=== PATIENT | female | born 1975 | race Caucasian/White ===

== ENCOUNTER 2024-03-28 09:39 | Outpatient (CLI) | payer BC, SELFPAY ==
[2024-03-28 11:54] LABS: Basophils Absolute Auto 0.1 K/mm3 (0.0-0.1); Basophils Percent Auto 1.4 % (0.2-1.2); Eosinophils Absolute Auto 0.1 K/mm3 (0-0.3); Eosinophils Percent Auto 2.7 % (0-4.4); Hematocrit 43.3 % (37.0-47.0); Hemoglobin 14.1 g/dL (12.0-15.0); Immature Granulocyte Absolute 0.02 K/mm3 (0.00-0.031); Immature Granulocyte Percent A 0.4 % (0-0.5); Lymphocytes Absolute Auto 1.55 K/mm3 (0.9-3.2); Mean Corpuscular HGB Conc 32.6 g/dl (32-36); Mean Corpuscular Hemoglobin 28.6 pg (26-34); Mean Corpuscular Volume 87.8 fl (80-100); Mean Platelet Volume 10.4 fl (7.4-10.4); Monocytes Absolute Auto 0.5 K/mm3 (0.1-0.6); Monocytes Percent Auto 8.9 % (2.6-8.5); Neutrophils Absolute Auto 2.9 K/mm3 (1.3-6.7); Neutrophils Percent Auto 56.6 % (45.5-73.1); Platelet Count Result 246 k/mm3 (150-375); Red Blood Count 4.93 M/mm3 (4.2-5.4); Red Cell Distribution Width 13.2 % (11.5-14.5); White Blood Count 5.2 K/mm3 (4.5-10.0)
[2024-03-28 12:27] LABS: Alanine Aminotransferase 11 U/L (6-35); Albumin Level 4.1 g/dL (3.5-5.1); Alkaline Phosphatase 65 U/L (38-126); Anion Gap -1 mmol/L (4-12); Aspartate Amino Transferase 35 U/L (14-36); Bilirubin,Total 0.5 mg/dL (0.2-1.3); Blood Urea Nitrogen 13 mg/dL (7-17); Calcium 9.1 mg/dL (8.4-10.2); Carbon Dioxide 31 mmol/L (22-30); Chloride 107 mmol/L (98-107); Cholesterol 180 mg/dL (0-200); Estimated Glomerular Filt Rate > 60; Glucose 83 mg/dL (65-110); HDL Direct 63 mg/dL; Potassium 4.8 mmol/L (3.4-5.0); Sodium 137 mmol/L (137-145); Triglycerides 75 mg/dL (<150)
[2024-03-28 12:30] LABS: Vitamin D 25 Hydroxy 59.5 ng/mL
[2024-03-28 12:38] LABS: LDL Cholesterol Direct 80 mg/dL
[2024-03-28 13:56] LABS: Hemoglobin A1C 5.4 % (<5.7)
== END 2024-03-28 09:40 | disposition home or self-care (01) ==
LOC: ANHGOSHLAB 09:40
PROVIDERS: PCP Family Medicine; Visit Provider Family Medicine
DX: Z00.00 Encounter for general adult medical examination without abnormal findings (principal); E53.8 Deficiency of other specified B group vitamins; E78.5 Hyperlipidemia, unspecified; I10 Essential (primary) hypertension; E55.9 Vitamin D deficiency, unspecified; R73.9 Hyperglycemia, unspecified
CPT/HCPCS: 36415; 80053; 80061; 82306; 82607; 83036; 84443; 85025

== ENCOUNTER 2024-10-10 00:31 | Day surgery (SDC) | payer BC, SELFPAY ==
[2024-09-22 10:15] VITALS: BMI 27.4
--- OUTSIDE RECORDS SUMMARY | 2024-10-10 00:34 | XMS_ITS | Data Portability ---
Author Organization JONATHAN Ballesteros SIKevin Pelaez Address [address] [place] [address] Assessment No assessment recorded. Plan of Treatment Reminders Order Date Submit Date Provider Last Modified By Organization Details Last Modified Time Details Appointments None recorded. Lab FSH (follicle -stimulat ing hormone), serum 2016 017 [facility], [address] [place] [address], [address], [place], [address], 7 07:12:32 estradiol , serum 2016 017 [facility], [address] [place] [address], [address], [place], [address], 7 07:12:33 CBC w/ auto diff 2016 017 [facility], [address] [place] [address], [address], [place], [address], 7 07:12:30 CMP, serum or plasma 2016 017 [facility], [address] [facility], [address], [place], [address], 7 07:12:31 TSH, ultra-sen sitive, serum 2016 017 [facility], [address] [place] [address], [address], [place], [address], 7 07:12:32 HbA1c (hemoglob in A1c), blood 2016 017 [facility], [address] [facility], [address], [place], [address], 7 07:12:32 lipid panel, serum 2016 [facility], [address] [facility], [address], [place], [address], 7 07:12:31 Referral None recorded. Procedures None recorded. Surgeries None recorded. Imaging MAMMO, screening , bilateral 2016 [facility] ([facility]), [address] [place] [address], [address], 15:02:01 Medication Orders multivita min tablet 2016 INTERFACE [facility], [address] [place] [address], [address], 7 12:07:43 calcium 600 mg (as carbonate )-vitamin D3 20 mcg (800 unit) tablet 2016 017 INTERFACE [facility], [address] [place] [address], [address], 7 12:07:41 estradiol 1 mg tablet 2016 017 ATHENAFAX [facility], [address] [place] [address], [address], 7 15:25:41 Contrave 8 mg-90 mg tablet,ex tended release 2016 017 ATHENAFAX Not available 13:38:21 Patient TargetsNo targets recorded. Patient Instructions Encounter Date Encounter Id Patient Instructions Last Modified By Organization Details Last Modified Time 06/22/2016 [id number] When You Want to Lose Weight: Care Instructions [facility] Not available 06/22/2016 12:07:47 mammogram: about this test mwasserman Not available 06/22/2016 15:02:01 Reason for Referral None Reported. Results Created Date Observation Date Name Description Value Unit Range Abnormal Flag Note LastModifiedBy Organization Detail LastModifiedTime 06/23/19 17 06/23/2016 CBC w/ auto diff WBC 8.1 x10e3 /uL 3.4-10 .8 Not Available [facility] ([facility]) [address] [facility] [address], [place], [address], 06/23/2016 07:12:30 06/23/19 17 06/23/2016 CBC w/ auto diff RBC 4.77 x10e6 /uL 3.77-5 .28 Not Available [facility] ([facility]) [address] [facility] [address] [place], [place], [address], 06/23/2016 07:12:30 06/23/19 17 06/23/2016 CBC w/ auto diff hemoglobin 13.5 g/dL 11.1-1 5.9 Not Available [facility] ([facility]) [address] [facility] [place], [address], 06/23/2016 07:12:30 06/23/19 17 06/23/2016 CBC w/ auto diff hematocrit 39.7 % 34.0-4 6.6 Not Available [facility] ([facility]) [address] [facility] [place], [address], 06/23/2016 07:12:30 06/23/19 17 06/23/2016 CBC w/ auto diff MCV 83 fL 79-97 Not Available [facility] ([facility]) [address] [facility] [place], [address], 06/23/2016 07:12:30 06/23/19 17 06/23/2016 CBC w/ auto diff MCH 28.3 pg 26.6-3 3.0 Not Available [facility] ([facility]) [address] [place], [address], 06/23/2016 07:12:30 06/23/19 17 06/23/2016 CBC w/ auto diff MCHC 34.0 g/dL 31.5-3 5.7 Not Available [facility] ([facility]) [address] [facility] [address], [place], [address], 06/23/2016 07:12:30 06/23/19 17 06/23/2016 CBC w/ auto diff RDW 13.9 % 12.3-1 5.4 Not Available [facility] ([facility]) [address] [facility] [address] [place], [place], [address], 06/23/2016 07:12:30 06/23/19 17 06/23/2016 CBC w/ auto diff platelets 272 x10e3 /uL 150-37 9 Not Available [facility] ([facility]) [address] [facility] [address] [place], [place], [address], 06/23/2016 07:12:30 06/23/19 17 06/23/2016 CBC w/ auto diff neutrophils 64 % Not Available [facility] ([facility]) [address] [facility] [address] [place], [place], [address], 06/23/2016 07:12:30 06/23/19 17 06/23/2016 CBC w/ auto diff lymphs 27 % Not Available [facility] ([facility]) [address] [facility] [address] [place], [place], [address], 06/23/2016 07:12:30 06/23/19 17 06/23/2016 CBC w/ auto diff monocytes 8 % Not Available [facility] ([facility]) [address] [facility] [address] [place], [place], [address], 06/23/2016 07:12:30 06/23/19 17 06/23/2016 CBC w/ auto diff eos 1 % Not Available [facility] ([facility]) [address] [facility] [address] [place], [place], [address], 06/23/2016 07:12:30 06/23/19 17 06/23/2016 CBC w/ auto diff basos 0 % Not Available [facility] ([facility]) [address] [facility] [address] [place], [place], [address], 06/23/2016 07:12:30 06/23/19 17 06/23/2016 CBC w/ auto diff immature cells NIGHT ORDER SELECTOR Not Available [facility] ([facility]) [address] [facility] [address] [place], [place], [address], 06/23/2016 07:12:30 06/23/19 17 06/23/2016 CBC w/ auto diff neutrophils (absolute) 5.2 x10e3 /uL 1.4-7. 0 Not Available [facility] ([facility]) [address] [facility] [place], [place], [address], 06/23/2016 07:12:30 06/23/19 17 06/23/2016 CBC w/ auto diff lymphs (absolute) 2.2 x10e3 /uL 0.7-3. 1 Not Available [facility] ([facility]) [address] [facility] [address] [place], [place], [address], 06/23/2016 07:12:30 06/23/19 17 06/23/2016 CBC w/ auto diff monocytes(ab solute) 0.6 x10e3 /uL 0.1-0. 9 Not Available [facility] ([facility]) [address] [place], [address], 06/23/2016 07:12:30 06/23/19 17 06/23/2016 CBC w/ auto diff eos (absolute) 0.1 x10e3 /uL 0.0-0. 4 Not Available [facility] ([facility]) [address] [place], [address], 06/23/2016 07:12:30 06/23/19 17 06/23/2016 CBC w/ auto diff baso (absolute) 0.0 x10e3 /uL 0.0-0. 2 Not Available [facility] ([facility]) [address] [place], [address], 06/23/2016 07:12:30 06/23/19 17 06/23/2016 CBC w/ auto diff immature granulocytes 0 % Not Available [facility] ([facility]) [address] [place], [address], 06/23/2016 07:12:30 06/23/19 17 06/23/2016 CBC w/ auto diff immature grans (abs) 0.0 x10e3 /uL 0.0-0. 1 Not Available [facility] ([facility]) [address] [facility] [address] [place], [place], [address], 06/23/2016 07:12:30 06/23/1906/23/2016 CBC w/ auto diff NRBC NIGHT ORDER SELECTOR Not Available [facility] ([facility]) [address] [place], [address], 06/23/2016 07:12:30 06/23/19 17 06/23/2016 CBC w/ auto diff hematology comments: NIGHT ORDER SELECTOR Not Available [facility] ([facility]) [address] [facility] [address] [place], [place], [address], 06/23/2016 07:12:30 06/23/19 17 06/23/2016 CMP, serum or plasm a glucose, serum 93 mg/dL 65-99 Not Available [facility] ([facility]) [address] [place], [address], 06/23/2016 07:12:31 06/23/1906/23/2016 CMP, serum or plasm a BUN 12 mg/dL 6-24 Not Available [facility] ([facility]) [address] [place], [address], 06/23/2016 07:12:31 06/23/1906/23/2016 CMP, serum or plasm a creatinine, serum 0.61 mg/dL 0.57-1 .00 Not Available [facility] ([facility]) [address] [place], [address], 06/23/2016 07:12:31 06/23/19 17 06/23/2016 CMP, serum or plasm a eGFR if nonafricn AM 114 mL/mi n/1.7 3 >59 Not Available [facility] ([facility]) [address] [place], [address], 06/23/2016 07:12:31 06/23/19 17 06/23/2016 CMP, serum or plasm a eGFR if africn AM 131 mL/mi n/1.7 3 >59 Not Available [facility] ([facility]) [address] [place], [address], 06/23/2016 07:12:31 06/23/19 17 06/23/2016 CMP, serum or plasm a BUN/creatini ne ratio 20 9-23 Not Available [facility] ([facility]) [address] [place], [address], 06/23/2016 07:12:31 06/23/19 17 06/23/2016 CMP, serum or plasm a sodium, serum 139 mmol/ L 134-14 4 Not Available [facility] ([facility]) [address] [place], [address], 06/23/2016 07:12:31 06/23/19 17 06/23/2016 CMP, serum or plasm a potassium, serum 4.5 mmol/ L 3.5-5. 2 Not Available [facility] ([facility]) [address] [place], [address], 06/23/2016 07:12:31 06/23/19 17 06/23/2016 CMP, serum or plasm a chloride, serum 102 mmol/ L 96-106 Not Available [facility] ([facility]) [address] [place], [address], 06/23/2016 07:12:31 06/23/19 17 06/23/2016 CMP, serum or plasm a carbon dioxide, total 22 mmol/ L 18-29 Not Available [facility] ([facility]) [address] [facility] [place], [address], 06/23/2016 07:12:31 06/23/19 17 06/23/2016 CMP, serum or plasm a calcium, serum 9.0 mg/dL 8.7-10 .2 Not Available [facility] ([facility]) [address] [facility] [place], [address], 06/23/2016 07:12:31 06/23/19 17 06/23/2016 CMP, serum or plasm a protein, total, serum 7.1 g/dL 6.0-8. 5 Not Available [facility] ([facility]) [address] [facility] [place], [address], 06/23/2016 07:12:31 06/23/19 17 06/23/2016 CMP, serum or plasm a albumin, serum 4.3 g/dL 3.5-5. 5 Not Available [facility] ([facility]) [address] [facility] [place], [address], 06/23/2016 07:12:31 06/23/1906/23/2016 CMP, serum or plasm a globulin, total 2.8 g/dL 1.5-4. 5 Not Available [facility] ([facility]) [address] [facility] [place], [address], 06/23/2016 07:12:31 06/23/1906/23/2016 CMP, serum or plasm a A/G ratio 1.5 1.2-2. 2 PLE ASE NOTE REFER ENCE INTER PAOLA SARAH E Not Available [facility] ([facility]) [address] [facility] [place], [address], 06/23/2016 07:12:31 06/23/19 17 06/23/2016 CMP, serum or plasm a bilirubin, total 0.4 mg/dL 0.0-1. 2 Not Available [facility] ([facility]) [address] [place], [address], 06/23/2016 07:12:31 06/23/19 17 06/23/2016 CMP, serum or plasm a alkaline phosphatase, S 84 IU/L 39-117 Not Available [facility] ([facility]) [address] [facility] [place], [address], 06/23/2016 07:12:31 06/23/19 17 06/23/2016 CMP, serum or plasm a AST (SGOT) 18 IU/L 0-40 Not Available [facility] ([facility]) [address] [facility] [place], [address], 06/23/2016 07:12:31 06/23/19 17 06/23/2016 CMP, serum or plasm a ALT (SGPT) 19 IU/L 0-32 Not Available [facility] ([facility]) [address] [facility] [place], [address], 06/23/2016 07:12:31 06/23/19 17 06/23/2016 lipid panel , serum cholesterol, total 199 mg/dL 100-19 9 Not Available [facility] ([facility]) [address] [facility] [place], [address], 06/23/2016 07:12:31 06/23/19 17 06/23/2016 lipid panel , serum triglyceride s 127 mg/dL 0-149 Not Available [facility] ([facility]) [address] [facility] [place], [address], 06/23/2016 07:12:31 06/23/19 17 06/23/2016 lipid panel , serum HDL cholesterol 61 mg/dL >39 Not Available [facility] ([facility]) [address] [facility] [place], [address], 06/23/2016 07:12:31 06/23/19 17 06/23/2016 lipid panel , serum VLDL cholesterol martin 25 mg/dL 5-40 Not Available [facility] ([facility]) [address] [facility] [place], [address], 06/23/2016 07:12:31 06/23/19 17 06/23/2016 lipid panel , serum LDL cholesterol calc 113 mg/dL 0-99 above high normal Not Available [facility] ([facility]) [address] [facility] [place], [address], 06/23/2016 07:12:31 06/23/19 17 06/23/2016 lipid panel , serum comment: NIGHT ORDER SELECTOR Not Available [facility] ([facility]) [address] [facility] [place], [address], 06/23/2016 07:12:31 06/23/19 17 06/23/2016 lipid panel , serum LDL/HDL ratio 1.9 ratio _unit s 0.0-3. 2 LDL/H DL RATIO MEN WOMEN 1/2 AVG.R ISK 1.0 1.5 AVG.R ISK 3.6 3.2 2X AVG.R ISK 6.2 5.0 3X AVG.R ISK 8.0 6.1 Not Available [facility] ([facility]) [address] [facility] [place], [address], 06/23/2016 07:12:31 06/23/19 17 06/23/2016 HbA1c (hemo globi n A1c), blood hemoglobin A1C 5.5 % 4.8-5. 6 PRE-D IABET ES: 5.7 - 6.4 DIABE SAVANNA: >6.4 GLYCE SEREGI CONTR OL FOR ADULT S WITH DIABE SAVANNA: <7.0 Not Available [facility] ([facility]) [address] [facility] [address], [place], [address], 06/23/2016 07:12:32 06/23/1906/23/2016 TSH, ultra -sens itive , serum TSH 2.240 uIU/m L 0.450- 4.500 Not Available [facility] ([facility]) [address] [facility] [place], [address], 06/23/2016 07:12:32 06/23/19 17 06/23/2016 FSH (foll icle- stimu latin g hormo ne), serum FSH 2.2 mIU/m L ADULT FEMAL E: FOLLI CULAR PHASE 3.5 - 12.5 OVULA TION PHASE 4.7 - 21.5 LUTEA L PHASE 1.7 - 7.7 POSTM ENOPA USAL 25.8 - 134.8 Not Available [facility] ([facility]) [address] [facility] [address], [place], [address], 06/23/2016 07:12:32 06/23/19 17 06/23/2016 estra diol, serum estradiol 105.5 pg/mL ADULT FEMAL E: FOLLI CULAR PHASE 12.5 - 166.0 OVULA TION PHASE 85.8 - 498.0 LUTEA L PHASE 43.8 - 211.0 POSTM ENOPA USAL <6.0 - 54.7 PREGN NAE 1ST TRIME STER 215.0 - >4300 .0 GIRLS (1-10 YEARS ) 6.0 - 27.0 JESS ECLIA METHO DOLOG Y Not Available [facility] ([facility]) [address] [facility] [address], [place], [address], 06/23/2016 07:12:33 Result Notes None recorded. 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 Procedures Surgical History Date Name Laterality Status Provider Name and Address Organization Details Recorded Time Total hysterectomy completed Estrella Adair MA [facility] 06/22/2016 11:15:09 Dilation and Curettage completed Estrella Adair [place] [facility] 06/22/2016 11:15:20 Orthopedic Surgery completed Estrella Adair MA [facility] 06/22/2016 11:15:49 Imaging Results None recorded. Procedure Notes None recorded. Medical Equipment None Reported. Allergies No known drug allergies Medications Name Sig Start Date Stop Date Status Note LastModified by Organization Details LastModified Time multivitamin tablet Take 1 tablet every day by oral route. 2016 active Not Available Not Available Not Avai lable estradiol 1 mg tablet Take 1 tablet every day by oral route for 30 days. 2016 active Not Available Not Available Not Avai lable calcium 600 mg (as carbonate)-vit hall D3 20 mcg (800 unit) tablet Take 1 tablet twice a day by oral route for 30 days. 2016 active Not Available Not Available Not Avai lable Contrave 8 mg-90 mg tablet,extende d release Take 2 tablets twice a day by oral route. 2016 active Not Available Not Available Not Avai lable Vitals Date Recorded Respiratory rate Systolic And Diastolic Provider Name and Address Organization Details Last Updated DateTime 06/22/2016 20 /min 136/86 mm[Hg] Lg Pereyraman [facility] 06/22/2016 14:33:20 Date Recorded Body height Body weight Body mass index (BMI) Systolic And Diastolic Provider Name and Address Organization Details Last Updated DateTime 06/22/2016 165.1 cm 05575.7 g 32.8 kg/m2 136/90 mm[Hg] Estrella Adair MA [facility] 06/22/2016 11:11:00 Social History Question Answer Notes LastModified by Organizat ion Details LastModified Time Tobacco Smoking Status Former Smoker Estrella Adair MA [facility] 06/22/2016 11:12:16 Do You Have An Advance Directive? No Information not available 06/22/2016 Is Blood Transfusion Acceptable In An Emergency? Yes Information not available 06/22/2016 What Is Your Level Of Caffeine Consumption? Moderate Information not available 06/22/2016 How Much Tobacco Do You Chew? None Information not available 06/22/2016 What Type Of Diet Are You Following? REGULAR Information not available 06/22/2016 Education 12 Information no t available 06/22/2016 Live Alone Or With Others? With Others Information not available 06/22/2016 How Many Children Do You Have? 2 Information not available 06/22/2016 Performs Monthly Self-breast Exam? Yes Information no t available 06/22/2016 What Is Your Relationship Status? Information not available 06/22/2016 Seat Belts Used Routinely Yes Information not available 06/22/2016 Are You Sexually Active? Yes Information not available 06/22/2016 At What Age Did You Start Smoking Tobacco? 17 Information not available 06/22/2016 How Much Tobacco Do You Smoke? 1 PPD Information not available 06/22/2016 General Stress Level High Information not available 06/22/2016 Do You Use Sunscreen Routinely? No Information not available 06/22/2016 How Many Years Have You Smoked Tobacco? 6 Information not available 06/22/2016 Sex: Unknown Functional Status Question Answer Note LastModified by deskwolfizat ion Details LastModified Time What is your level of alcohol consumption? Occasional Information not available 06/22/2016 Are you currently employed? 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 Moderate Information not available 06/22/2016 Mental Status None recorded. Family History Relationship Description Onset Age of this Age Resolved Age Notes LastModified by Organization Details LastModified Time Mother Hypertensive disorder Not available 2016 11:11:37 Maternal Grandmother Dementia Not available 06/22 11:11:58 Medical History Condition Response Other N High Blood Pressure N Breast Cancer N Thyroid Problems N Kidney or Bladder Problems N Lung Disease N Depression N Blood Clots N GI Problems N Acne N Breast Problem N Eating Disorder N Anemia N Anesthesia Complications N Headaches/Migraines N Ovarian Cancer N Diabetes N Anxiety Disorder N Muscle, Joint, or Bone Problems N Blood Transfusions N Seizures/Epilepsy N Polyps N Infertility N Acid Reflux (GERD) N Cancer N Abuse/Domestic Violence N Asthma N Endometriosis N High Cholesterol N Hepatitis N Liver Disease N Heart Disease N Pre-Eclampsia N Osteoporosis N Gynecological History Statement/Question Response Abnormal Pap N STIs/STDs N HPV Vaccine N Most Recent Mammogram Age at Menarche 12 Current Control Method None Age at First Child 19 Sexually Active? Y Menses Monthly N Date of Last Pap Smear Sexual Problems? 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 Menopausal syndrome 1237 29035 N95.9 Health Concerns Section Related Observation LastModified by Organization Detai ls LastModified Time None Recorded Concern Status LastModified by Organization Details LastModified Time None Recorded Advance Directives Directive N: Payers Insurance Date Sequence Insurance Name Policy Number Policy Marsh Covered Member ID Marsh Member ID Guarantor Name 06/22/2016 1 NINO [id number] Luis Fer [id number] Ivanna Monroe Notes Date Note Type Note Provider Name and Address Organization Details Recorded Time 06/22/2016 text/html Annual Machine [employer] 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 Vaginal Bleeding:history of menopause having occurred; no history of post menopausal bleeding Urinary Symptoms:no hematuria; no nocturia;stress incontinence;urin kobi frequency: 8 times during the day Breast:no breast lump; no nipple discharge; no breast pain Sexual Complaints:no sexual complaints Psychological Symptoms:no anxiety;depressio n 41 yo CF here for clinical breast exam and obesity management Lg Darby [place], [place] - [facility] 06/22/2016 15:12:52 OBGyn Episode Ob Episode Information Episode Created Date Number of Fetuses Patient Bloodtype Patient rh Status Prepregnancy Weight lbs Domestic Partner Domestic Partner Phone Father Name [employer] Director Status 06/23/19 17 1 CLOSED Fetus Data First Name Last Name Admitted to NICU Weight (g) Sex Living Outcome Pediatric Complications Fetus ID Race Codes Race Delivery Type 3175.14 4 M Full Term [id number] Vaginal John Calculation Initial John Date Initial Exam Date Initial Exam Provider Initial Ultrasound Date Last Menstrual Period Date Ultra Sound Weeks Gestation 0 Eighteen To Twenty Week John Update Ultra Sound Date Fundal Height At Umbil Quickening Date Ultra Sound Latest Weeks Gestation Final John Confirmed By Final John Confirmed Date Final John Date Ultra Sound Latest Days Gestation 0 0 Menstrual History Last Menstrual Date Menses Monthly On Bcp Conception Prior Menses Frequency Hcg Plus Date Menarche Onset Age Delivery Information Delivery Date Delivery Type Labor Anesthesia Weeks Gestation Incision Type Labor Labor Length Hrs Delivered By Post Complications Tubal Sterilization Discharge Date Comments 5 None 40 false Discharge Information Feeding Method Contraceptive Method Maternal HG B and HCT Levels Ob Episode Information Episode Created Date Number of Fetuses Patient Bloodtype Patient rh Status Prepregnancy Weight lbs Domestic Partner Domestic Partner Phone Father Name [employer] Director Status 06/23/19 17 1 CLOSED Fetus Data First Name Last Name Admitted to NICU Weight (g) Sex Living Outcome Pediatric Complications Fetus ID Race Codes Race Delivery Type 3656.85 [id number] F Full Term [id number] Vaginal John Calculation Initial John Date Initial Exam Date Initial Exam Provider Initial Ultrasound Date Last Menstrual Period Date Ultra Sound Weeks Gestation 0 Eighteen To Twenty Week John Update Ultra Sound Date Fundal Height At Umbil Quickening Date Ultra Sound Latest Weeks Gestation Final John Confirmed By Final John Confirmed Date Final John Date Ultra Sound Latest Days Gestation 0 0 Menstrual History Last Menstrual Date Menses Monthly On Bcp Conception Prior Menses Frequency Hcg Plus Date Menarche Onset Age Delivery Information Delivery Date Delivery Type Labor Anesthesia Weeks Gestation Incision Type Labor Labor Length Hrs Delivered By Post Complications Tubal Sterilization Discharge Date Comments 1 None 40 false Discharge Information Feeding Method Contraceptive Method Maternal HG B and HCT Levels
--- OUTSIDE RECORDS SUMMARY | 2024-10-10 00:34 | XMS_ITS | Clinical Summary ---
Author Organization [facility] Address [address] [place] [address] Care Team Providers Care Skate Maker Name Role Phone Unavailable Primary Care Provider Unavailabl e Source Comments [facility],non-owned Affiliates and Associated Physician Practices is amultiple site organization consisting of ambulatory clinics and hospital sitesin [place], [place], [place] and [place]. This disclosure is being madepursuant to the Care Everywhere program and may not contain all information available regarding this patient. Last updated 17.[facility] [employer] Social History Tobacco Use Types Packs/Day Years Used Date Smoking Tobacco: Never Assessed Comments Unknown Sex and Gender Information Value Date Recorded Sex Assigned at Not on file Legal Sex Female 8:10 AM CDT Gender Identity Not on file Sexual Orientation Not on file Plan of Treatment Health Maintenance Due Date Last Done Comments COLOGUARD (AGES 45-75) - COL ON CA SCREENING 1976 COLON MONITORING 1976 COLONOSCOPY - COLON CA SCREENING 1976 CT COLONOGRAPHY - COLON CA SCREENING 1976 Colorectal Cancer Screening 1976 FIT - COLON CA SCREENING 1976 FLEX SIG - COLON CA SCREENING 1976 LIPID TESTING 1976 MAMMOGRAM 1976 HIV SCREENING 1991 HEPATITIS C SCREENING 04/06/1994 DTAP/TDAP/TD VACCINES (1 - Tdap) 1995 HEPATITIS B VACCINE (1 of 3 - 19+ 3-dose series) 1995 COVID-19 VACCINE ( - 2023-2 5 season) 2023 DEPRESSION SCREENING 04/02/2024 INFLUENZA VACCINE (#1) 2024 ZOSTER VACCINE (1 of 2) 2026 HIB VACCINE Aged Out No longer eligi ble based on patient's age to complete this topic HPV VACCINE Aged Out No longer eligi ble based on patient's age to complete this topic MENINGOCOCCAL (Group B) VACC INE SHARED DECISION-MAKING Aged Out No longer eligibl e based on patient's age to complete this topic MENINGOCOCCAL GROUPS A/C/Y/W VACCINE Aged Out No longer eligible b ased on patient's age to complete this topic PNEUMOCOCCAL VACCINE Aged Out No long er eligible based on patient's age to complete this topic Insurance ANTH
--- OUTSIDE RECORDS SUMMARY | 2024-10-10 00:34 | XMS_ITS | Data Portability ---
Author Organization [facility] [employer], Main Office Address [address] [place] [address] Assessment Encounter Date Assessment Date Assessment LastModified by Organization Details LastModified Time 07/05/2022 07/05/2022 The patient gave verbal consent using TelePhonic services and the consent is documented in the medical record prior to using the service. The patient has been informed of what a TeleMedicine visit is. Patient is located at home. Provider is located at office. Names and roles of persons in addition to the patient and provider participating in telemedicine services include none. The patient had a 9 minute TeleMedicine consultation via phone call to discuss the following: Not available 07/05/2022 12:11:55 Plan of Treatment Reminders Order Date Submit Date Provider Last Modified By Organization Details Last Modified Time Details Appointments None recorded. Lab None recorded. Referral None recorded. Procedures None recorded. Surgeries None recorded. Imaging ankle brachial index - b/l LE Please call pt to schedule 2022 [email or web address] [place] [address], [address] [place] [address] Rd, [address], [place], [address], 3 09:14:02 Medication Orders azelastine 137 mcg (0.1 %) nasal spray 2023 024 [facility] 192, [address], [address], 4 15:32:58 amlodipine 2.5 mg tablet 2023 024 [facility] 478, [address], [address], 4 15:32:57 escitalopra m 10 mg tablet 2023 024 [place] [address], [address] [place] [address], [address], 4 15:32:51 escitalopra m 20 mg tablet 2023 024 [place] [address], [address] [place] [address], [address], 4 15:32:52 amlodipine 2.5 mg tablet 2022 023 [place] [address], [address] [place] [address], [address], 3 16:19:50 venlafaxine ER 75 mg capsule,ext ended release 24 hr [email or web address] [place] [address], [address] [place] [address], [address], 4 15:30:27 phentermine 37.5 mg tablet 2022 023 [place] [address], [address] [place] [address], [address], 3 12:12:34 Patient TargetsNo targets recorded. Patient Instructions Encounter Date Encounter Id Patient Instructions Last Modified By Organization Details Last Modified Time 07/05/2022 [id number] Due to the COVID-19 (Novel Coronavirus) pandemic, it is within this context (and with the understanding that this method of patient encounter is in the patient s best interest as well as the health and safety of other patients and the public) that telehealth is being provided for this patient encounter rather than a dtis-ao-cxcl visit. This patient encounter is appropriate at this time. This patient has been advised of the potential risks and limitations of this mode of treatment (including, but not limited to, the absence of in-person examination) and has agreed to be treated in a remote fashion despite these risks. Any and all of the patient s/patient s family s questions on this issue have been answered, and I have made no promises or guarantees to the patient. The patient has also been advised to contact this office for worsening conditions or problems, and seek emergency medical treatment and/or call 911 if the patient deems either necessary. HPI and/or vitals, if listed, were provided by the patient. Not available 07/05/2022 12:11:43 Reason for Referral None Reported. Results Created Date Observation Date Name Description Value Unit Range Abnormal Flag Note LastModifiedBy Organization Detail LastModifiedTime 09/09/1909/08/2022 CBC WITH DIFFE RENTI AL/PL ATELE T WBC 5.3 x10e3 /uL 3.4-10 .8 Not Available [facility] ([facility]) [address] [place], [address], 09/09/2022 07:12:21 09/09/1909/08/2022 CBC WITH DIFFE RENTI AL/PL ATELE T RBC 4.75 x10e6 /uL 3.77-5 .28 Not Available [facility] ([facility]) [address] [place], [address], 09/09/2022 07:12:21 09/09/1909/08/2022 CBC WITH DIFFE RENTI AL/PL ATELE T hemoglobin 13.5 g/dL 11.1-1 5.9 Not Available [facility] ([facility]) [address] [place], [address], 09/09/2022 07:12:21 09/09/1909/08/2022 CBC WITH DIFFE RENTI AL/PL ATELE T hematocrit 40.8 % 34.0-4 6.6 Not Available [facility] ([facility]) [address] [place], [address], 09/09/2022 07:12:21 06/09/20 23 09/08/2022 CBC WITH DIFFE RENTI AL/PL ATELE T MCV 86 fL 79-97 Not Available [facility] ([facility]) [address] [place], [address], 09/09/2022 07:12:21 09/09/19 23 09/08/2022 CBC WITH DIFFE RENTI AL/PL ATELE T MCH 28.4 pg 26.6-3 3.0 Not Available [facility] ([facility]) [address] [facility], [place], [address], 09/09/2022 07:12:21 09/09/19 23 09/08/2022 CBC WITH DIFFE RENTI AL/PL ATELE T MCHC 33.1 g/dL 31.5-3 5.7 Not Available [facility] ([facility]) [address] [facility], [place], [address], 09/09/2022 07:12:21 09/09/19 23 09/08/2022 CBC WITH DIFFE RENTI AL/PL ATELE T RDW 13.6 % 11.7-1 5.4 Not Available [facility] ([facility]) [address] [place], [address], 09/09/2022 07:12:21 09/09/19 23 09/08/2022 CBC WITH DIFFE RENTI AL/PL ATELE T platelets 244 x10e3 /uL 150-45 0 Not Available [facility] ([facility]) [address] [place], [address], 09/09/2022 07:12:21 09/09/19 23 09/08/2022 CBC WITH DIFFE RENTI AL/PL ATELE T neutrophils 51 % not estab. Not Available [facility] ([facility]) [address] [place], [address], 09/09/2022 07:12:21 09/09/19 23 09/08/2022 CBC WITH DIFFE RENTI AL/PL ATELE T lymphs 38 % not estab. Not Available [facility] ([facility]) [address] [facility], [place], [address], 09/09/2022 07:12:21 09/09/19 23 09/08/2022 CBC WITH DIFFE RENTI AL/PL ATELE T monocytes 8 % not estab. Not Available [facility] ([facility]) [address] [facility], [place], [address], 09/09/2022 07:12:21 09/09/19 23 09/08/2022 CBC WITH DIFFE RENTI AL/PL ATELE T eos 2 % not estab. Not Available [facility] ([facility]) [address] [place], [address], 09/09/2022 07:12:21 09/09/19 23 09/08/2022 CBC WITH DIFFE RENTI AL/PL ATELE T basos 1 % not estab. Not Available [facility] ([facility]) [address] [facility], [place], [address], 09/09/2022 07:12:21 09/09/19 23 09/08/2022 CBC WITH DIFFE RENTI AL/PL ATELE T immature cells MANAGER TALENT MANAGEMENT Not Available [facility] ([facility]) [address] [place], [address], 09/09/2022 07:12:21 09/09/1909/08/2022 CBC WITH DIFFE RENTI AL/PL ATELE T neutrophils (absolute) 2.7 x10e3 /uL 1.4-7. 0 Not Available [facility] ([facility]) [address] [place], [address], 09/09/2022 07:12:21 09/09/19 23 09/08/2022 CBC WITH DIFFE RENTI AL/PL ATELE T lymphs (absolute) 2.0 x10e3 /uL 0.7-3. 1 Not Available [facility] ([facility]) [address] [place], [address], 09/09/2022 07:12:21 09/09/19 23 09/08/2022 CBC WITH DIFFE RENTI AL/PL ATELE T monocytes(ab solute) 0.4 x10e3 /uL 0.1-0. 9 Not Available [facility] ([facility]) [address] [facility], [place], [address], 09/09/2022 07:12:21 09/09/19 23 09/08/2022 CBC WITH DIFFE RENTI AL/PL ATELE T eos (absolute) 0.1 x10e3 /uL 0.0-0. 4 Not Available [facility] ([facility]) [address] [facility], [place], [address], 09/09/2022 07:12:21 09/09/19 23 09/08/2022 CBC WITH DIFFE RENTI AL/PL ATELE T baso (absolute) 0.0 x10e3 /uL 0.0-0. 2 Not Available [facility] ([facility]) [address] [facility], [place], [address], 09/09/2022 07:12:21 09/09/19 23 09/08/2022 CBC WITH DIFFE RENTI AL/PL ATELE T immature granulocytes 0 % not estab. Not Available [facility] ([facility]) [address] [facility], [place], [address], 09/09/2022 07:12:21 09/09/19 23 09/08/2022 CBC WITH DIFFE RENTI AL/PL ATELE T immature grans (abs) 0.0 x10e3 /uL 0.0-0. 1 Not Available [facility] ([facility]) [address] [facility], [place], [address], 09/09/2022 07:12:21 09/09/19 23 09/08/2022 CBC WITH DIFFE RENTI AL/PL ATELE T NRBC MANAGER TALENT MANAGEMENT Not Available [facility] ([facility]) [address] [facility], [place], [address], 09/09/2022 07:12:21 09/09/1909/08/2022 CBC WITH DIFFE ADAN AL/PL GABO T hematology comments: MANAGER TALENT MANAGEMENT Not Available [facility] ([facility]) [address] [facility], [place], [address], 09/09/2022 07:12:21 09/09/19 23 09/09/2022 BASIC METAB OLIC PANEL (8) glucose 90 mg/dL 70-99 Not Available [facility] ([facility]) [address] [facility], [place], [address], 09/09/2022 07:12:22 09/09/19 23 09/09/2022 BASIC METAB OLIC PANEL (8) BUN 13 mg/dL 6-24 Not Available [facility] ([facility]) [address] [facility], [place], [address], 09/09/2022 07:12:22 09/09/19 23 09/09/2022 BASIC METAB OLIC PANEL (8) creatinine 0.79 mg/dL 0.57-1 .00 Not Available [facility] ([facility]) [address] [facility], [place], [address], 09/09/2022 07:12:22 09/09/1909/09/2022 BASIC METAB OLIC PANEL (8) eGFR 93 mL/mi n/1.7 3 >59 Not Available [facility] ([facility]) [address] [facility], [place], [address], 09/09/2022 07:12:22 09/09/19 23 09/09/2022 BASIC METAB OLIC PANEL (8) BUN/creatini ne ratio 16 9-23 Not Available [facility] ([facility]) [address] [facility], [place], [address], 09/09/2022 07:12:22 09/09/19 23 09/09/2022 BASIC METAB OLIC PANEL (8) sodium 141 mmol/ L 134-14 4 Not Available [facility] ([facility]) [address] [place], [address], 09/09/2022 07:12:22 09/09/19 23 09/09/2022 BASIC METAB OLIC PANEL (8) potassium 4.1 mmol/ L 3.5-5. 2 Not Available [facility] ([facility]) [address] [place], [address], 09/09/2022 07:12:22 09/09/19 23 09/09/2022 BASIC METAB OLIC PANEL (8) chloride 105 mmol/ L 96-106 Not Available [facility] ([facility]) [address] [place], [address], 09/09/2022 07:12:22 09/09/19 23 09/09/2022 BASIC METAB OLIC PANEL (8) carbon dioxide, total 24 mmol/ L 20-29 Not Available [facility] ([facility]) [address] [place], [address], 09/09/2022 07:12:22 09/09/19 23 09/09/2022 BASIC METAB OLIC PANEL (8) calcium 8.9 mg/dL 8.7-10 .2 Not Available [facility] ([facility]) [address] [place], [address], 09/09/2022 07:12:22 09/09/19 23 09/09/2022 LIPID PANEL cholesterol, total 173 mg/dL 100-19 9 Not Available [facility] ([facility]) [address] [place], [address], 09/09/2022 07:12:23 09/09/19 23 09/09/2022 LIPID PANEL triglyceride s 45 mg/dL 0-149 Not Available [facility] ([facility]) [address] [place], [address], 09/09/2022 07:12:23 09/09/19 23 09/09/2022 LIPID PANEL HDL cholesterol 61 mg/dL >39 Not Available [facility] ([facility]) [address] [place], [address], 09/09/2022 07:12:23 09/09/19 23 09/09/2022 LIPID PANEL VLDL cholesterol martin 9 mg/dL 5-40 Not Available [facility] ([facility]) [address] [place], [address], 09/09/2022 07:12:23 09/09/19 23 09/09/2022 LIPID PANEL LDL chol calc ([facility]) 103 mg/dL 0-99 above high normal Not Available [facility] ([facility]) [address] [place], [address], 09/09/2022 07:12:23 09/09/19 23 09/09/2022 LIPID PANEL comment: MANAGER TALENT MANAGEMENT Not Available [facility] ([facility]) [address] [place], [address], 09/09/2022 07:12:23 09/09/19 23 09/09/2022 HEPAT IC FUNCT ION PANEL (7) protein, total 6.6 g/dL 6.0-8. 5 Not Available [facility] ([facility]) [address] [place], [address], 09/09/2022 07:12:24 09/09/19 23 09/09/2022 HEPAT IC FUNCT ION PANEL (7) albumin 4.2 g/dL 3.8-4. 8 Not Available [facility] ([facility]) [address] [place], [address], 09/09/2022 07:12:24 09/09/19 23 09/09/2022 HEPAT IC FUNCT ION PANEL (7) bilirubin, total 0.3 mg/dL 0.0-1. 2 Not Available [facility] ([facility]) [address] [place], [address], 09/09/2022 07:12:24 09/09/19 23 09/09/2022 HEPAT IC FUNCT ION PANEL (7) bilirubin, direct 0.10 mg/dL 0.00-0 .40 Not Available [facility] ([facility]) [address] [place], [address], 09/09/2022 07:12:24 09/09/19 23 09/09/2022 HEPAT IC FUNCT ION PANEL (7) alkaline phosphatase 71 IU/L 44-121 Not Available [facility] ([facility]) [address] [facility], [place], [address], 09/09/2022 07:12:24 09/09/19 23 09/09/2022 HEPAT IC FUNCT ION PANEL (7) AST (SGOT) 14 IU/L 0-40 Not Available [facility] ([facility]) [address] [facility], [place], [address], 09/09/2022 07:12:24 09/09/1909/09/2022 HEPAT IC FUNCT ION PANEL (7) ALT (SGPT) 9 IU/L 0-32 Not Available [facility] ([facility]) [address] [place], [address], 09/09/2022 07:12:24 09/09/1909/09/2022 HEMOG LOBIN A1C hemoglobin A1C 5.5 % 4.8-5. 6 Predi abete s: 5.7 - 6.4 Diabe julia: >6.4 Glyce fili contr ol for adult s with diabe julia: <7.0 Not Available Not Available 09/09/2022 07:12:25 09/09/1909/09/2022 TSH TSH 2.070 uIU/m L 0.450- 4.500 Not Available Not Available 09/09/2022 07:12:25 09/09/1909/09/2022 VITAM IN D, 25-HY DROXY vitamin D, 25-hydroxy 32.8 NG/mL 30.0-1 00.0 Vitam in D defic iency has been defin ed by the Insti tute of Medic ine and an Endoc rine Socie ty pract ice guide line as a level of serum 25-OH vitam in D less than 20 ng/mL (1,2) . The Endoc rine Socie ty went on to furth er defin e vitam in D insuf ficie ncy as a level betwe en 21 and 29 ng/mL (2). 1. IOM (Inst itute of Medic ine). 2010. Dona ry refer ence june es for calci um and D. Tamra trejo [place]: The [facility] . 2. Lana sutton [place], Ryan latham [place], Rachel off-F errar i RYAN, et al. Evalu ation , treat ment, and preve ntion of vitam in D defic iency : an Endoc rine Socie ty clini martin pract ice guide line. JCEM. 2010; 96(7) :1911 -30. Not Available [facility] ([facility]) [address], [place], [address], 09/09/2022 07:12:26 Result Notes None recorded. Problems Name Problem SNOMED Code Status Onset Date Resolution Date Notes Provider Name and Address Organization Details Recorded Time Seasonal affective disorder 412851258 Active 2022 Mary Holland MD [address], [place], [address] , Tucker Blair [facility] [employer] 3 12:10:21 Hyperlipidemi a screening Active 2022 Mary Holland MD [address], [place], [address] , Tucker Blair [facility] [employer] 3 08:00:01 Raynaud's disease 390278241 Active 2022 Mary Holland MD [address], [place], [address] , Tucker Blair [facility] [employer] [facility] 3 16:18:08 Elevated blood-pressur e reading without diagnosis of hypertension 614125349 Active 2022 Mary Holland MD [address], [place] [address], [place], [address] , [facility] [employer] [facility] [employer] [facility] 3 16:19:53 Acute sinusitis 78002175 Active 2023 ARIAS Kim [address], [place] [address], [place], [address] , Tucker Blair [facility] [employer] [facility] 4 16:04:36 Pain of ear 643361848 Active 2023 ARIAS Zaragoza [address], [place] [address], [place], [address] , Tucker Blair [facility] [employer] [facility] 4 15:19:25 Seasonal allergy 216380785 Active 2023 ARIAS Zaragoza [address], [place] [address], [place], [address] , Tucker Blair [facility] [employer] [facility] 4 15:23:35 Hypertensive disorder 15596948 Active 2021 Not Available [facility] 3 00:51:03 Problem Notes None recorded. Medical Equipment None Reported. Allergies No known drug allergies Medications Name Sig Start Date Stop Date Status Note LastModified by Organization Details LastModified Time amoxicillin 500 mg capsule TAKE 1 CAPSULE BY MOUTH EVERY 8 HOURS UNTIL GONE 08/17 completed Not Available Not Available Not Available venlafaxine ER 75 mg capsule,ext ended release 24 hr TAKE 1 CAPSULE BY MOUTH ONCE DAILY 11/28 completed Not Available Not Available Not Available azithromyci n 250 mg tablet TAKE 2 TABLETS (500 MG) BY ORAL ROUTE ONCE DAILY FOR 1 DAY THEN 1 TABLET (250 MG) BY ORAL ROUTE ONCE DAILY FOR 4 DAYS 11/28 completed Not Available Not Available Not Available Tubersol 5 tub. unit/0.1 mL intradermal injection solution 0.1 ml intraderm all x 1 07/05 completed Not Available Not Available Not Available amlodipine 2.5 mg tablet Take 1 tablet every day by oral route. active Not Available Not Available No t Available phentermine 37.5 mg tablet Take 1 tablet by mouth once daily active Not Available Not Available No t Available amlodipine 5 mg tablet TAKE 1 TABLET BY MOUTH ONCE DAILY 01/29 completed Not Available Not Available Not Available azelastine 137 mcg (0.1 %) nasal spray 2 actuation s (0.15%) in each nostril qd active Not Available Not Available No t Available escitalopra m 10 mg tablet Take 1 tablet by mouth once daily 2023 active Not Available Not Available Not Avai lable escitalopra m 20 mg tablet TAKE 1 & 1/2 (ONE & ONE-HALF) TABLETS BY MOUTH ONCE DAILY active Not Available Not Available No t Available bupropion HCl XL 150 mg 24 hr tablet, extended release Take 1 tablet every day by oral route. 04/05 completed Not Available Not Available Not Available gatifloxaci n 0.5 % eye drops INSTILL 1 DROP INTO RIGHT EYE EVERY 2 HOURS WHILE AWAKE active Not Available Not Available No t Available Zepbound 2.5 mg/0.5 mL subcutaneou s pen injector 0.5 ml sc qweek 11/28 completed Not Available Not Available Not Available Vitals Date Recorded Body weight Body mass index (BMI) Body height Body temperature Heart rate Oxygen saturation Oxygen saturation in Arterial blood by Pulse oximetry Systolic And Diastolic Provider Name and Address Organization Details Last Updated DateTime 4 47754.1 1 g 28.1 kg/m2 165.1 cm 98.5 [degF] 108 /min 93 % 93 % 110/78 mm[Hg] Marcela Langston RN [facility] [employer] [facility] 4 15:17:54 Date Recorded Body height Provider Name an d Address Organization Details Last Updated DateTime 01/10/2022 165.1 cm Not Available [employer] 3 00:46:40 Date Recorded Body weight Body temperature Heart rate Oxygen saturation Oxygen saturation in Arterial blood by Pulse oximetry Systolic And Diastolic Provider Name and Address Organization Details Last Updated DateTime 3 13378.1 5 g 97.2 [degF] 98 /min 98 % 98 % 150/86 mm[Hg] Irvin Melton RN [place] [facility] [employer] 16:06:55 Social History Question Answer Notes LastModified by [facility] Details LastModified Time Tobacco Smoking Status Never Smoker Sandra guerra [facility] [employer] 07/05/2022 11:37:47 What Is Your Level Of Caffeine Consumption? Moderate [id number] Information not available 05/31/2022 In The 14 Days Before Symptom Onset, Have You Had Close Contact With A Laboratory-confirm ed COVID-19 While That Case Was Ill? No Information n ot available 07/05/2022 In The 14 Days Before Symptom Onset, Have You Had Close Contact With A Person Who Is Under Investigation For COVID-19 While That Person Was Ill? No [email or web address] Information not available 07/05/2022 What Type Of Diet Are You Following? GLUTENFREE [id number] Information not available 05/31/2022 Has Tobacco Cessation Counseling Been Provided? No [email or web address] Information not available 07/05/2022 Do You Have Any Dietary Restrictions? No Information not available 07/05/2022 Sex: Unknown Functional Status Question Answer Note LastModified by [email or web address] Details LastModified Time Do you use any illicit or recreational drugs? No Information not available 07/05/2022 Do you or have you ever used any other forms of tobacco or nicotine? No Information not available 07/05/2022 What is your exercise level? Moderate [id number] Information not available 05/31/2022 Mental Status None recorded. Family History Relationship Description Onset Age of this Age Resolved Age Notes LastModified by Organization Details LastModified Time Mother Hypertensive disorder [id number] Not available 05/31/2022 00:45:19 Father Family history of malignant neoplasm [email or web address] Not available 2022 11:37:47 Medical History No medical history recorded. Gynecological History Statement/Question Response Abnormal Pap N Sexually Active? Y Dislike of Light during Menstrual Headac he N Menses Monthly N STIs/STDs N Current Control Method Hysterectom y Breast Problems no Discharge no Obstetrics History GPAL:G 0 P 0 0 0 0 Immunizations Vaccine Type Date Status Note Provider Nam e and Address Organization Details Recorded Time Tdap 06/01/2020 completed Not Available [employer] 05/31/2022 00:59:15 Influenza, split virus, quadrivalent, PF 02/11/2018 completed Not Available [facility] 00:59:15 Influenza, split virus, quadrivalent, PF 01/29/2023 completed Irvin Melton RN [facility] [employer] [facility] 01/29/2023 16:39:35 Past Encounters Encounter ID Performer Location Encounter Start Date Encounter Closed Date Diagnosis/Indication Diagnosis SNOMED-CT Code Diagnosis ICD10 Code Diagnosis Note [id number] Mary Holland MD [facility] Primary [facility] [place] [address] [facility] [address] [place] [address] 06/01/2020 00:00:00 06/02/2020 16:00:48 [id number] Mary Holland MD [facility] Primary [facility] [place] [address] [facility] [address] [place] [address] 11/22/2020 00:00:00 11/22/2020 16:28:49 [id number] Mary Holland MD [facility] Primary [facility] [place] [address] [facility] [address] [place] [address] 04/25/2021 00:00:00 04/25/2021 12:49:02 [id number] Mary Holland MD [facility] Primary [facility] [place] [address] [facility] [address] [place] [address] 01/10/2022 00:00:00 01/29/2022 23:16:51 [id number] Mary Holland MD [facility] Primary [facility] [place] [address] [facility] [address] [place] [address] 04/05/2022 00:00:00 04/06/2022 11:27:25 [id number] Mary Holland MD [facility] Primary [facility] [place] [address] [facility] [address] [place] [address] 07/05/2022 11:37:22 07/05/2022 12:30:08 Seasonal affective disorder 873939988 F33.9 needs lab orders [facility] [id number] Z71.3 [id number] Mary Holland MD [facility] Primary [facility] [place] [address] [employer] [address] [place] [address] 01/29/2023 15:53:08 01/30/2023 16:49:57 Raynaud's disease 188255451 I73.00 check ABItrial of amlodipine 2.5 mg dailyf/u in 3 months or sooner if needed Elevated blood-pressure reading without diagnosis of hypertension 137130460 R03.0 check home bps and send portal message in 4 weeks [id number] ARIAS Zaragoza [facility] [place] [address] [employer] [address] [place] [address] 11/29/2023 14:58:43 11/29/2023 16:17:32 Seasonal allergy 876478735 J30.2 pt uses xyzal prn, but makes her sleepycont inue at bedtimetri al azelastine Renewal of prescription [id number] Z76.0 Health Concerns Section Related Observation LastModified by Organization Detai ls LastModified Time None Recorded Concern Status LastModified by Organization Details LastModified Time None Recorded Advance Directives Directive None Recorded Payers Insurance Date Sequence Insurance Name Policy Number Policy Marsh Covered Member ID Marsh Member ID Guarantor Name 02/06/2024 1 [employer] [id number] Luis Monroe [id number] Ivanna Monroe Notes Date Note Type Note Provider Name and Address Organization Details Recorded Time 07/05/2022 text/html Telephone visit 04/05/21: Follow up on bupropion xl 150 mg daily. She did not notice much improvement in her mood and she was having some sharp, crampy abd pain that went away when she d/c the medication. Pain was in the upper abd/epigastric area and was so intense that she thought she might have to go to ER. She tried laying down to stretch out, pain finally went away on it's own. A few days to a week later she had the same pain again. No nausea or diarrhea associated with the abd pain. No blood in stools. Appetite is ok. No . heartburn. No abd since before Thanks. telephone 07/05/22: Abd pain is now resolved. She tried escitalopram but it made her too sleepy even if she took it at night. She is currently fostering a young baby and is even more homebound Mary Holland MD [address], [facility] [address], [place], [address], Tucker Blair [facility] [employer] 07/28/2022 17:42:34 01/29/2023 text/html Telephone visit 04/05/21: Follow up on bupropion xl 150 mg daily. She did not notice much improvement in her mood and she was having some sharp, crampy abd pain that went away when she d/c the medication. Pain was in the upper abd/epigastric area and was so intense that she thought she might have to go to ER. She tried laying down to stretch out, pain finally went away on it's own. A few days to a week later she had the same pain again. No nausea or diarrhea associated with the abd pain. No blood in stools. Appetite is ok. No . heartburn. No abd since before . telephone 07/05/22: Abd pain is now resolved. She tried escitalopram but it made her too sleepy even if she took it at night. She is currently fostering a young baby and is even more homebound update 01/29/23: hands and feet get cold and can turn purple at times. She can have pain and color changes in her hands for No chest pain, no sob. She is taking phentermine off and on, has maintained her weight loss. No home blood pressures for review. Mary Holland MD [address] [facility] [address], [place], [address], [facility] [employer] [facility] [employer] 01/29/2023 16:24:20 11/29/2023 text/html pt is here for f/u Paulo redmond, RADIOLOGY PHYSICIAN ASSISTANT-C [address] [facility] [address], [place], [address], [facility] [employer] [facility] [employer] 11/29/2023 15:34:05 OBGyn Episode No OBEpisode recorded.
[2024-10-10 11:56] VITALS: BP 109/68; PULSE 101; RESP 18; TEMP 36.4; O2SAT 100
[2024-10-10] MEDS: LACTATED RINGERS 1,000 ML 150 ML IV CONT (12:04)
--- NOTE | 2024-10-10 12:50 | WPDANESEPPF ---
Anes - Initial Pre Proc Eval Procedure: Operation Date: 10/10/24 13:00 Proposed Procedures p Screening Colonoscopy - Chet Olivarez MD Date/Time: 10/10/24 12:50 Surgeon: Chet Olivarez MD Pre Op Diagnosis: screening Patient Data Age: 49 Gender: F Height: 1.63 m Weight: 72.6 kg Last Vital Signs Temp 97.6 F 10/10/24 11:56 Pulse 101 H 10/10/24 11:56 Resp 18 10/10/24 11:56 BP 109/68 10/10/24 11:56 Pulse Ox 100 10/10/24 11:56 O2 Del Method Room Air 10/10/24 11:56 Allergies Allergy/AdvReac Type Severity Reaction Status Date / Time No Known Allergies Allergy Unknown Verified 10/10/24 11:53 Home Medications ?Medication ?Instructions ?Recorded ?Confirmed ?Type vitamin B complex 1 tablet PO DAILY 06/12/19 10/10/24 History azelastine 137 mcg (0.1 %) nasal 1 spray intranasal PRN PRN 02/26/24 09/22/24 History spray allergies escitalopram oxalate 20 mg tablet 30 mg PO DAILY 02/26/24 10/10/24 History amlodipine 5 mg tablet 5 mg PO DAILY #90 tabs 07/01/24 10/10/24 Rx tirzepatide (weight loss) 2.5 2.5 mg subcut WEEKLY 07/01/24 10/10/24 History mg/0.5 mL subcutaneous pen injector (Zepbound) fluticasone propionate 50 See Rx Instructions .Route 09/23/24 10/10/24 Rx mcg/actuation nasal .COMPLEX #16 mL spray,suspension Patient hx anesthesia problems: none Family hx anesthesia problems: none Results Review: All pre-operative results and documents have been reviewed as part of the pre-operative evaluation. [facility] Past Medical History Medical History Depression Environmental allergies Essential (primary) hypertension Surgical History Surgical History History of hysterectomy 2008 History of knee surgery 1991 & 1993 b/l cartilage repair Family History Family History Father Cancer of unknown origin Mother Hypertension Grandparent Hypertension Social History Social History Smoking status: Former smoker (quit in 20s) Tobacco type: cigarettes Second hand tobacco smoke exposure: No Alcohol intake: current Alcohol use details: consumes 1 beer drink once a month, sometimes Substance use: never Substance use type: does not use Do You Feel Safe in your Home?: Yes Lack of Transportation: No Lack of Food: Never True Current Housing: I Have Housing Concerned About Future Housing: No Difficulty Paying Gas/Electric Bills: No Difficulty Paying for Meds: No Currently Unemployed: No Difficulty w/ Childcare or Family Care: No Living arrangements: with family Occupation/Education: occupation Gender identity (if verbalized by the patient): Female Agree to blood products: Yes Anes - Eval Final PreProcedure Day of Procedure 10/10/24 12:50 Patient weight: normal Heart: regular rate and rhythm Lungs: clear to auscultation Airway: Mallampati scale class II Neurological: alert and oriented Last oral intake: >/= 8 hours ASA classification: II Emergent: no Anesthetic plan: proceed Anesthesia type and monitoring: general GIVS and standard monitoring Results Review: All pre-operative results and documents have been reviewed as part of the pre-operative evaluation. Informed Consent: The patient's anesthetic plan and its attendant risks and benefits were discussed with the patient/family/POA. Questions were solicited and answers provided to the satisfaction of the patient/family/POA.
--- NOTE | 2024-10-10 13:01 | PM.IMHP ---
H&P: HPI History of Present Illness Date/Time: 10/10/24 13:01 Chief Complaint: Screening colonoscopy Narrative: This is the patient's first colonoscopy. There are no GI symptoms and there is no family history of colorectal cancer. Review of Systems Review of Systems: All systems reviewed & are unremarkable except as noted in HPI and below PMFSH Past Medical History Medical History Depression Environmental allergies Essential (primary) hypertension Surgical History Surgical History History of hysterectomy 2007 History of knee surgery 1991 & 1993 b/l cartilage repair Family History Family History Father Cancer of unknown origin Mother Hypertension Grandparent Hypertension Social History Social History Smoking status: Former smoker (quit in 20s) Tobacco type: cigarettes Second hand tobacco smoke exposure: No Alcohol intake: current Alcohol use details: consumes 1 beer drink once a month, sometimes Substance use: never Substance use type: does not use Do You Feel Safe in your Home?: Yes Lack of Transportation: No Lack of Food: Never True Current Housing: I Have Housing Concerned About Future Housing: No Difficulty Paying Gas/Electric Bills: No Difficulty Paying for Meds: No Currently Unemployed: No Difficulty w/ Childcare or Family Care: No Living arrangements: with family Occupation/Education: occupation Gender identity (if verbalized by the patient): Female Agree to blood products: Yes Meds Home Medications and Allergies Home Medications ?Medication ?Instructions ?Recorded ?Confirmed ?Type vitamin B complex 1 tablet PO DAILY 06/12/19 10/10/24 History azelastine 137 mcg (0.1 %) nasal 1 spray intranasal PRN PRN 02/26/24 09/22/24 History spray allergies escitalopram oxalate 20 mg tablet 30 mg PO DAILY 02/26/24 10/10/24 History amlodipine 5 mg tablet 5 mg PO DAILY #90 tabs 07/01/24 10/10/24 Rx tirzepatide (weight loss) 2.5 2.5 mg subcut WEEKLY 07/01/24 10/10/24 History mg/0.5 mL subcutaneous pen injector (Zepbound) fluticasone propionate 50 See Rx Instructions .Route 09/23/24 10/10/24 Rx mcg/actuation nasal .COMPLEX #16 mL spray,suspension Allergies Allergy/AdvReac Type Severity Reaction Status Date / Time No Known Allergies Allergy Unknown Verified 10/10/24 11:53 Vital Signs Vital Signs - 24 hr 10/10/24 11:56 Temperature 97.6 F Pulse Rate 101 H Respiratory Rate 18 Blood Pressure 109/68 Pulse Oximetry 100 Oxygen Delivery Room Air Exam Const: General: cooperative and healthy appearing Resp: Effort & Inspection: normal respiratory effort and able to speak in complete sentences Auscultation: clear to auscultation bilaterally Cardio: Rate: regular rate Rhythm: regular rhythm GI: Inspection: normal to inspection GI Palp: No No hepatosplenomegaly present Auscultation: normal bowel sounds Rectal Exam: deferred Skin: General skin exam: normal color Psych: Appearance: grossly normal Mental Status: mental status grossly normal Assessment and Plan Assessment and plan (1) Encounter for screening colonoscopy: Code(s): Z12.11 - Encounter for screening for malignant neoplasm of colon Status: Acute Assessment and Plan: The patient is deemed a good candidate for the procedure. Consent signed. Will proceed.
[2024-10-10 13:23] VITALS: BP 111/73; PULSE 84; RESP 26; O2SAT 100
[2024-10-10 13:33] VITALS: BP 118/68; PULSE 76; RESP 19; O2SAT 100
[2024-10-10 13:43] VITALS: BP 120/82; PULSE 71; RESP 18; O2SAT 100
== END 2024-10-10 13:52 | disposition home or self-care (01) ==
PROVIDERS: PCP Family Medicine; Referring Provider Family Medicine; Visit Provider Internal Medicine Gastroenterology
PROC: 0DJD8ZZ Inspection of Lower Intestinal Tract, Via Natural or Artificial Opening Endoscopic (ICD-10-PCS; CPT 45378; principal; 2024-10-10 13:00)
DX: Z12.11 Encounter for screening for malignant neoplasm of colon (principal); I10 Essential (primary) hypertension; F32.A Depression, unspecified; Z79.85 Long-term (current) use of injectable non-insulin antidiabetic drugs; Z98.890 Other specified postprocedural states; Z87.891 Personal history of nicotine dependence; Z80.9 Family history of malignant neoplasm, unspecified
CPT/HCPCS: 45378; J2003; J2704; J7120